=== PATIENT | female | born 1990 | race Hispanic/Latino ===

== ENCOUNTER 2019-11-16 15:42 | Emergency (ER) | payer MEDICAID ==
[~2019-11-16 15:42] MED LIST: PREN1TAB89 PO
[2019-11-16] MEDS ORDERED: ACETAMINOPHEN EXTRA STRENGTH 500 MG TABLET ONE (15:58)
[2019-11-16 16:20] LABS: BASOPHILS % (AUTO) 0.2 % (0.0-5.0); HEMATOCRIT 38.2 % (36-48); LYMPHOCYTES % (AUTO) 21.3 % (21.0-51.0); MEAN CORPUSCULAR HEMOGLOBIN 27.5 pg (27.0-33.0); MEAN CORPUSCULAR HGB CONC 32.7 g/dL (32.0-36.0); MONOCYTES % (AUTO) 3.1 % (3.0-13.0); NEUTROPHILS % (AUTO) 75.2 % (40.0-77.0); PLATELET COUNT (AUTO) 219 K/uL (130-400); RED BLOOD CELL COUNT(AUTO) 4.55 MIL/uL (4.00-5.50); RED CELL DISTRIBUTION WIDTH 14.6 % (11.0-15.5); WHITE BLOOD COUNT (AUTO) 4.8 K/uL (4.8-10.8)
[2019-11-16 16:28] LABS: CREATININE 0.7 mg/dL (0.5-1.5)
[2019-11-16 16:39] LABS: ALBUMIN 3.9 g/dL (3.5-5.0); BILIRUBIN,TOTAL 0.2 mg/dL (0.2-1.0); TOTAL PROTEIN, SERUM 8.3 g/dL (6.0-8.3)
[2019-11-16] MEDS ORDERED: POTASSIUM BICARB/CIT AC 25 MEQ TABLET.EFF ONE (16:43)
[2019-11-16] MEDS ORDERED: IOHEXOL-350 75 ML VIAL IV ONE (18:08)
== END 2019-11-16 20:29 | disposition home or self-care (01) ==
LOC: EDH 15:42
DX: U07.1 COVID-19 (principal); J12.89 Other viral pneumonia; Z98.51 Tubal ligation status
CPT/HCPCS: 36415; 71045; 71275; 80053; 84702; 85025; 85378; 93005; 99285; J7030; Q9967

== ENCOUNTER → 2022-02-28 | Outpatient (CLI) | payer OTHER ==
[~2022-02-28] VITALS: Ht 17.8 cm; Wt 110.0 kg
== END | disposition home or self-care (01) ==
LOC: DTH 07:58
PROVIDERS: ATTEND Surgery
DX: Z71.3 Dietary counseling and surveillance (principal); G47.33 Obstructive sleep apnea (adult) (pediatric); K76.0 Fatty (change of) liver, not elsewhere classified; K21.9 Gastro-esophageal reflux disease without esophagitis; E66.09 Other obesity due to excess calories; Z68.39 Body mass index [BMI] 39.0-39.9, adult
CPT/HCPCS: 97802; 97803

== ENCOUNTER → 2022-03-28 | Outpatient (CLI) | payer OTHER | END | disposition home or self-care (01) | LOC: DTH 09:16 | PROVIDERS: ATTEND Surgery | DX: Z71.3 Dietary counseling and surveillance (principal); K76.0 Fatty (change of) liver, not elsewhere classified; K21.9 Gastro-esophageal reflux disease without esophagitis; G47.33 Obstructive sleep apnea (adult) (pediatric); E66.09 Other obesity due to excess calories; Z68.39 Body mass index [BMI] 39.0-39.9, adult | CPT/HCPCS: 97803 ==

== ENCOUNTER → 2022-05-29 | Outpatient (CLI) | payer OTHER | END | disposition home or self-care (01) | LOC: DTH 08:33 | PROVIDERS: ATTEND Surgery | DX: Z71.3 Dietary counseling and surveillance (principal); K76.0 Fatty (change of) liver, not elsewhere classified; K21.9 Gastro-esophageal reflux disease without esophagitis; G47.33 Obstructive sleep apnea (adult) (pediatric); E66.9 Obesity, unspecified; Z68.39 Body mass index [BMI] 39.0-39.9, adult | CPT/HCPCS: 97803 ==

== ENCOUNTER → 2022-06-12 | Outpatient (CLI) | payer OTHER | END | disposition home or self-care (01) | LOC: DTH 12:17 | PROVIDERS: ATTEND Surgery | DX: Z71.3 Dietary counseling and surveillance (principal); K76.0 Fatty (change of) liver, not elsewhere classified; K21.9 Gastro-esophageal reflux disease without esophagitis; G47.33 Obstructive sleep apnea (adult) (pediatric); E66.9 Obesity, unspecified; Z68.39 Body mass index [BMI] 39.0-39.9, adult | CPT/HCPCS: 97803 ==

== ENCOUNTER → 2022-07-24 | Outpatient (CLI) | payer OTHER ==
[~2022-07-24] MED LIST changes: +IBUP-2070 PO
== END | disposition home or self-care (01) ==
LOC: DTH 11:09
PROVIDERS: ATTEND Surgery
DX: Z71.3 Dietary counseling and surveillance (principal); E66.9 Obesity, unspecified; G47.33 Obstructive sleep apnea (adult) (pediatric); K76.0 Fatty (change of) liver, not elsewhere classified; K21.9 Gastro-esophageal reflux disease without esophagitis; Z68.39 Body mass index [BMI] 39.0-39.9, adult
CPT/HCPCS: 97803

== ENCOUNTER → 2022-08-21 | Outpatient (CLI) | payer OTHER | END | disposition home or self-care (01) | LOC: DTH 10:14 | PROVIDERS: ATTEND Surgery | DX: Z71.3 Dietary counseling and surveillance (principal); K76.0 Fatty (change of) liver, not elsewhere classified; K21.9 Gastro-esophageal reflux disease without esophagitis; G47.33 Obstructive sleep apnea (adult) (pediatric); E66.9 Obesity, unspecified; Z68.39 Body mass index [BMI] 39.0-39.9, adult | CPT/HCPCS: 97803 ==

== ENCOUNTER → 2022-09-24 | Outpatient (CLI) | payer OTHER | END | disposition home or self-care (01) | LOC: DTH 11:19 | PROVIDERS: ATTEND Surgery | DX: Z71.3 Dietary counseling and surveillance (principal); K21.9 Gastro-esophageal reflux disease without esophagitis; G47.33 Obstructive sleep apnea (adult) (pediatric); K76.0 Fatty (change of) liver, not elsewhere classified; Z68.39 Body mass index [BMI] 39.0-39.9, adult | CPT/HCPCS: 97803 ==

== ENCOUNTER → 2022-10-09 | Outpatient (CLI) | payer OTHER | END | disposition home or self-care (01) | LOC: DTH 12:14 | PROVIDERS: ATTEND Surgery | DX: Z71.3 Dietary counseling and surveillance (principal); E66.9 Obesity, unspecified; G47.33 Obstructive sleep apnea (adult) (pediatric); K76.0 Fatty (change of) liver, not elsewhere classified; K21.9 Gastro-esophageal reflux disease without esophagitis; Z68.39 Body mass index [BMI] 39.0-39.9, adult | CPT/HCPCS: 97803 ==

== ENCOUNTER 2022-11-29 19:12 | Emergency (ER) | payer MEDICAID ==
[~2022-11-29] VITALS: Ht 170.2 cm; Wt 99.8 kg
[~2022-11-29 19:12] MED LIST changes: +FERS325 PO; -IBUP-2070 PO; +MULT-1367 PO; -PREN1TAB89 PO
[2022-11-29 20:40] LABS: BASOPHILS % (AUTO) 0.3 % (0.0-5.0); EOSINOPHILS % (AUTO) 0.1 % (0.0-8.0); HEMATOCRIT 40.8 % (36-48); LYMPHOCYTES % (AUTO) 11.3 % (21.0-51.0); MEAN CORPUSCULAR HEMOGLOBIN 27.4 pg (27.0-33.0); MEAN CORPUSCULAR HGB CONC 31.9 g/dL (32.0-36.0); MEAN CORPUSCULAR VOLUME 85.9 fL (79-99); MONOCYTES % (AUTO) 4.7 % (3.0-13.0); NEUTROPHILS % (AUTO) 83.4 % (40.0-77.0); PLATELET COUNT (AUTO) 289 K/uL (130-400); RED BLOOD CELL COUNT(AUTO) 4.75 MIL/uL (4.00-5.50); RED CELL DISTRIBUTION WIDTH 15.6 % (11.0-15.5); WHITE BLOOD COUNT (AUTO) 9.5 K/uL (4.8-10.8)
[2022-11-29 20:44] LABS: APPEARANCE,URINE CLEAR (CLEAR); BILIRUBIN,URINE NEGATIVE (NEGATIVE); COLOR,URINE LIGHT-YELLOW (YELLOW); GLUCOSE, URINE (UA) NEGATIVE (NEGATIVE); KETONES,URINE 150 mg/dL (NEGATIVE); LEUKOCYTE ESTERASE ,URINE NEGATIVE Leu/uL (NEGATIVE); NITRATE,URINE NEGATIVE (NEGATIVE); PH,URINE 5.5 (5.0-8.0); PROTEIN,URINE 50 mg/dL (NEGATIVE)
[2022-11-29 20:48] LABS: BACTERIA,URINE RARE /HPF (None Seen); MUCUS,URINE RARE LPF (None Seen); RBC,URINE 0-1 /HPF (0-1); SQUAMOUS EPITHELIAL CELL,UR RARE /HPF (0-2)
[2022-11-29 20:58] LABS: CREATININE 0.7 mg/dL (0.5-1.5); POTASSIUM 3.4 mmol/L (3.5-5.1)
[2022-11-29 21:02] LABS: ALBUMIN 4.1 g/dL (3.5-5.0); MAGNESIUM 1.7 mg/dL (1.80-2.40); TOTAL PROTEIN, SERUM 8.6 g/dL (6.0-8.3)
[2022-11-29] MEDS ORDERED: MAGNESIUM OXIDE 400 MG TABLET PO ONE (22:30)
[2022-11-29] MEDS ORDERED: POTASSIUM BICARB/CIT AC 25 MEQ TABLET.EFF PO ONE (22:30)
[2022-11-29] MEDS ORDERED: LACTATED RINGERS 1000ML 1,000 ML IV ONE (23:30)
[2022-11-29] MEDS ORDERED: METOCLOPRAMIDE 10 MG/2 ML VIAL IM ONE (23:30)
[2022-11-30] MEDS ORDERED: IOHEXOL-350 75 ML VIAL IV ONE (00:25)
[2022-11-30] MEDS ORDERED: POLY17PO4 PO (02:16)
[2022-11-30 02:58] VITALS: BP 119/75
== END 2022-11-30 03:18 | disposition home or self-care (01) ==
LOC: EDH 19:12
DX: K59.00 Constipation, unspecified (principal); E87.6 Hypokalemia; E83.42 Hypomagnesemia
CPT/HCPCS: 99285; 74177; 96360; 96361; 83735; 80053; 84703; 85025; 81001; 36415; 74018; 96372; J7120; J2765; Q9967